=== PATIENT | female | born 2000 | race Caucasian/White ===

== ENCOUNTER → 2020-08-19 | Outpatient (CLI) | payer BC ==
--- NOTE | 2020-08-19 14:58 | US ---
EXAMINATION TYPE: US thyroid st tissue head/neck DATE OF EXAM: 08/19/2020 COMPARISON: NONE CLINICAL HISTORY: R59.0 Localized enlarged lymp. GLAND SIZE: Right Lobe: 4.3 x 1.5 x 1.0 cm Overall Parenchyma: homogenous Left Lobe: 4.4 x 1.3 x 1.3 cm Overall Parenchyma: homogeneous Isthmus Thickness: 0.2 cm NODULES RIGHT: # of nodules measured on right: 0 LEFT: # of nodules measured on left: 0 ISTHMUS: # of nodules measured in the isthmus: 0 Bilateral neck scanned, no evidence of lymphadenopathy. Patients previous palpable are under jaw scanned, no lymphadenopathy or abnormality seen. IMPRESSION: No distinct abnormality seen.
--- NOTE | 2020-08-19 15:07 | US ---
EXAMINATION TYPE: US abdomen complete DATE OF EXAM: 08/19/2020 COMPARISON: NONE CLINICAL HISTORY: R10.84 Abdomen pain. EXAM MEASUREMENTS: Liver Length: 12.6 cm Gallbladder Wall: 0.2 cm CBD: 0.2 cm Spleen: 9.4 cm Right Kidney: 9.7 x 2.6 x 4.5 cm Left Kidney: 10.5 x 4.9 x 4.6 cm Pancreas: wnl Liver: homogeneous Gallbladder: wnl Evidence for sonographic Valles's sign: no CBD: wnl Spleen: wnl Right Kidney: No hydronephrosis or masses seen Left Kidney: No hydronephrosis or masses seen Upper IVC: wnl Abd Aorta: wnl The liver is homogenous. The intrahepatic portion of the IVC and proximal abdominal aorta are within normal limits. There is no evidence of cholelithiasis. Common bile duct is unremarkable. The visu alized portions of the pancreas are homogenous. The spleen is unremarkable. Kidneys are symmetric a nd free of hydronephrosis. No renal lesions are seen. IMPRESSION: No distinct abnormality.
== END | disposition home or self-care (01) ==
LOC: RADUSWWP 14:00
PROVIDERS: ATTEND Family Medicine
DX: R10.84 Generalized abdominal pain (principal); R59.0 Localized enlarged lymph nodes; R63.4 Abnormal weight loss
CPT/HCPCS: 76536; 76700